=== PATIENT | male | born 1955 | race Caucasian/White ===

== ENCOUNTER 2017-01-02 11:42 | Outpatient (CLI) | payer MEDICARE, OTHER ==
[2016-09-07 15:57] VITALS: BP 102/80
[2017-01-02 12:27] LABS: eGFR (African) > 60; eGFR (Non-African) > 60
== END 2017-01-02 11:43 ==
LOC: LAB 11:42
PROVIDERS: ATTEND Family Medicine
DX: E03.9 Hypothyroidism, unspecified (principal); Z79.899 Other long term (current) drug therapy; E11.9 Type 2 diabetes mellitus without complications; Z51.81 Encounter for therapeutic drug level monitoring
CPT/HCPCS: 36415; 80053; 80164; 83036; 84443

== ENCOUNTER 2017-01-09 14:48 | Outpatient (CLI) | payer MEDICARE, OTHER ==
[2016-09-07 15:57] VITALS: BP 102/80
== END 2017-01-09 14:58 ==
LOC: POD 14:48
PROVIDERS: ATTEND Podiatrist
DX: B35.1 Tinea unguium (principal); M79.674 Pain in right toe(s); M79.675 Pain in left toe(s)
CPT/HCPCS: G0463

== ENCOUNTER 2017-05-01 14:33 | Outpatient (CLI) | payer MEDICARE, OTHER ==
[2016-09-07 15:57] VITALS: BP 102/80
[2017-05-01 14:53] LABS: BASOPHILS % 0.5 (0.0-1.5); EOSINOPHILS % 2.4 % (0.0-6.8); MEAN CORPUSCULAR HEMOGLOBIN 29.9 pg (28.0-34.0); MEAN CORPUSCULAR VOLUME 90.8 fl (80.0-100.0); MONOCYTES % 4.5 % (0.0-11.0); NEUTROPHILS # 5.5 # k/uL (1.4-7.7)
[2017-05-01 15:32] LABS: eGFR (African) > 60; eGFR (Non-African) 59
== END 2017-05-01 14:35 ==
LOC: LAB 14:33
PROVIDERS: ATTEND Family Medicine
DX: I10 Essential (primary) hypertension (principal); E11.9 Type 2 diabetes mellitus without complications
CPT/HCPCS: 36415; 80053; 83036; 85025

== ENCOUNTER 2017-12-21 15:20 | Outpatient (CLI) | payer MEDICARE, OTHER ==
[2016-09-07 15:57] VITALS: BP 102/80
--- NOTE | 2017-12-21 16:19 | Diagnostic Imaging Report ---
EVELYN GALICIA [facility] [address] [facility] [address] [address] Report Submission Date: Dec 21, 2017 4:14:34 PM CDT Patient Study Name: JR STOVER Date: Dec 21, 2017 3:25:50 PM CDT Modality Type: DX Gender: M Description: PELVIS : 51 Institution: [facility] Physician: EVELYN GALICIA Bilateral hips History: Pain AP and frogleg lateral projections of the bilateral hips were obtained which demonstrate [id number] superolateral migration of the right femoral head and mild superolateral migration of the left femoral head. There is no flattening of either femoral head. There is no subchondral fracture or abnormal sclerosis. Impression: Mild osteoarthritis of the left hip and mild to moderate osteoarthritis of the right hip. Electronically signed on Dec 21, 2017 4:14:34 PM CDT by: Vannessa OCHOA
== END 2017-12-21 15:22 ==
LOC: RAD 15:20
PROVIDERS: ATTEND Family Medicine
DX: M25.551 Pain in right hip (principal)
CPT/HCPCS: 73521

== ENCOUNTER 2018-12-05 14:38 | Emergency (ER) | payer OTHER ==
--- NOTE | 2018-12-05 15:03 | ED Physician Documentation ---
General Adult - HISTORIAN Historian: patient, other (Caregiver- [facility]) - HPI Stated Complaint: fall Chief Complaint: General Adult (Multiple complaints) Additional Information: Patient is a 63-year-old male that presents to the ER via POV from [facility]. Apparently, patient spent the weekend with family and had a fall- staff is not sure what happened. Patient c/o low back pain- not found on palpation. C/O abdominal discomfort; decreased appetite today (only) and unsure of LBM. He has had no n/v/d- no fever or chills. He has strong pushes and pulls with legs- he is able to stand- he is able to lay down in bed and bring his legs up. Caregiver states that he normally walks and rarely refuses food. Onset: hours Timing: still present Severity: mild Modifying Factors: Fall - ROS CONST: weakness EYES/ENT: none CVS/RESP: none GI/: abdominal pain, other (decreased appetite). denies: vomiting, nausea MS/SKIN/LYMPH: back pain NEURO/PSYCH: difficulty walking - PAST HX Past History: hypertension Other History: diabetes Type 2, other (Hypothyroid, GERD, MARYANN, Schizoprenia, Mild MR) Surgeries/Procedures: none Immunizations: UTD Allergies/Adverse Reactions: Allergies Allergy/AdvReac Type Severity Reaction Status Date / Time No Known Drug Allergies Allergy Verified 12/05/18 14:52 Home Medications: Ambulatory Orders Medication Instructions Recorded Sertraline HCl 100 mg PO DAILY u2 12/17/12 Aripiprazole 30 Days #30 02/25/17 Divalproex Sodium [Divalproex 30 Days #60 02/25/17 Sodium Er] Diclofenac Sodium [Voltaren] 75 mg PO BID PRN #60 tablet. 12/05/18 Simethicone [Gas Relief] 80 mg PO TID PRN #15 tab.chew 12/05/18 - SOCIAL HX Smoking History: non-smoker Alcohol Use: none Drug Use: none - FAMILY HX Family History: No - VITAL SIGNS Vital Signs: Vital Signs Temp Pulse Resp BP Pulse Ox 98.6 F 71 21 120/90 95 12/05/18 14:48 12/05/18 14:48 12/05/18 14:48 12/05/18 14:48 12/05/18 14:48 - REVIEWED ASSESSMENTS Nursing Assessment Reviewed: Yes Vitals Reviewed: Yes Progress - Progress Progress: 15:50 noted some dehydration- will implement fluid challenge- per RN patient has already drank 1 glass of water. 16:30 patient drank 4 glasses of water and is doing well drinking- staff were informed to keep patient drinking fluids ED Results Lab/Radiology - Radiology Radiology Impressions: Three-view lumbar spine Clinical history: Fall. Back pain. Findings: Examination lumbar spine in AP, lateral and lateral coned-down views demonstrates vertebrae to be anatomically aligned. Anterior and lateral osteophytes are present at multiple levels. There is no evident fracture. There is mild biconcave deformity of the lumbar vertebrae at multiple levels. There is no significant paravertebral soft tissue widening although there is a large amount of bowel gas superimposing the lumbar spine on the AP view. Impression: 1. Spondylosis. 2. No acute fracture. ABDOMEN 1VIEW HISTORY: ABDOMINAL PAIN, DECREASED APPETITE. FINDINGS: Bowel pattern is unremarkable with gaseous distention of the colon but no evidence of obstruction. Fecal material in the rectum is seen. Bones of the region are unremarkable and no other abnormality is identified. IMPRESSION: Gaseous distention of the colon without acute process. - Orders Orders: ED Orders Category Date Time Status ABDOMEN 1VIEW [RAD] Stat Exams 12/05/18 Ordered LUMBAR SPINE XR 2 OR 3 VIEWS [L SPINE 2 OR 3 VIEWS] [ Exams 12/05/18 Ordered RAD] Stat CBC/PLATELET/DIFF Stat Lab 12/05/18 14:58 Ordered CMP Stat Lab 12/05/18 14:58 Ordered General Adult Physical Exam - PHYSICAL EXAM GENERAL APPEARANCE: mild distress EENT: eye inspection normal, ENT inspection normal, pharynx normal NECK: supple RESPIRATORY: chest non-tender, breath sounds normal CVS: heart sounds normal, equal pulses ABDOMEN: non-tender, decreased BS BACK: normal inspection SKIN: warm/dry, normal color EXTREMITIES: no evidence of injury, other (patient appears stiff- slow movements) NEURO: oriented X3, CN's nml as tested, motor nml, sensation nml, mood/affect nml, cognition normal Discharge Clincal Impression: Dehydration, Unable to pass flatus, Lumbar sprain Prescriptions: Diclofenac Sodium [Voltaren] 75 mg PO BID PRN #60 tablet.dr PRN Reason: Back Pain Simethicone [Gas Relief] 80 mg PO TID PRN #15 tab.chew PRN Reason: Gas Pain Referrals: Yumiko Disla FNP [Primary Care Provider] - 2 Days Additional Instructions: Give Simethicone 80mg by mouth 2-3 times daily for gas pain Will put in order for outpatient physical therapy May use heating pad May use Icy Hot, BenGay, or Salonpas Diclofenac 75mg by mouth twice a day as needed for pain Encourage patient to drink plenty of fluids Patient did well drinking fluids here. Condition: Good Disposition: 01 HOME, SELF-CARE Decision to Admit: NO Decision Time: 16:38
[2018-12-05 15:06] LABS: BASOPHILS % 0.5 % (0.0-1.5); NEUTROPHILS # 9.5 # k/uL (1.4-7.7)
[2018-12-05 15:43] VITALS: BP 142/93
[2018-12-05] MEDS: SIMETHICONE 80 MG TAB.CHEW PO ONE (16:22)
[2018-12-05] MEDS: DICLOFENAC SODIUM 75 MG PO ONE (16:31)
--- NOTE | 2018-12-05 18:29 | Diagnostic Imaging Report ---
EMILIANO GRAFF ED [facility] [address] [facility] [address] [place] [address]. [id number] Report Submission Date: Dec 05, 2018 3:53:03 PM CDT Patient Study Name: JR STOVER Date: Dec 05, 2018 3:11:12 PM CDT Modality Type: DX Gender: M Description: L SPINE 2 OR 3 VIEWS : 51 Institution: [facility] Physician: EMILIANO GRAFF ED Three-view lumbar spine Clinical history: Fall. Back pain. Findings: Examination lumbar spine in AP, lateral and lateral coned-down views demonstrates vertebrae to be anatomically aligned. Anterior and lateral osteophytes are present at multiple levels. There is no evident fracture. There is mild biconcave deformity of the lumbar vertebrae at multiple levels. There is no significant paravertebral soft tissue widening although there is a large amount of bowel gas superimposing the lumbar spine on the AP view. Impression: 1. Spondylosis. 2. No acute fracture. Electronically signed on Dec 05, 2018 3:53:03 PM CDT by: Sylvester OCHOA
--- NOTE | 2018-12-05 18:29 | Diagnostic Imaging Report ---
EMILIANO GRAFF ED [facility] [address] [facility] [address] [address] Report Submission Date: Dec 05, 2018 4:03:27 PM CDT Patient Study Name: JR STOVER Date: Dec 05, 2018 3:11:12 PM CDT Modality Type: DX Gender: M Description: ABDOMEN 1VIEW : 51 Institution: [facility] Physician: EMILIANO GRAFF ED ABDOMEN 1VIEW HISTORY: ABDOMINAL PAIN, DECREASED APPETITE. FINDINGS: Bowel pattern is unremarkable with gaseous distention of the colon but no evidence of obstruction. Fecal material in the rectum is seen. Bones of the region are unremarkable and no other abnormality is identified. IMPRESSION: Gaseous distention of the colon without acute process. Electronically signed on Dec 05, 2018 4:03:27 PM CDT by: Wilder OCHOA
== END 2018-12-05 16:32 | disposition home or self-care (01) ==
LOC: ED 14:38
DX: S33.5XXA Sprain of ligaments of lumbar spine, initial encounter (principal); K63.89 Other specified diseases of intestine; E86.0 Dehydration; W19.XXXA Unspecified fall, initial encounter; Y99.8 Other external cause status
CPT/HCPCS: 72100; 74018; 80053; 85025; 99282